=== PATIENT | male | born 1960 | race Caucasian/White ===

== ENCOUNTER 2018-02-08 06:23 | Day surgery (SDC) | payer OTHER ==
[2018-02-03 15:56] VITALS: BMI 21.7
[~2018-02-08 06:23] MED LIST: LACTATED RINGERS 1,000 ML IV SCH; LIDOCAINE 1% 20 ML VIAL (10MG/ML) FOR IV START INTRADERMA PRN
[2018-02-08 06:56] VITALS: RESP 16; TEMP 98.2
[2018-02-08 06:59] LABS: Glucose,Whole Blood 348 mg/dL (75-99)
[2018-02-08] MEDS ORDERED: PROPOFOL 10 MG/ML 20 ML VIAL IV ONE (07:52)
[2018-02-08] MEDS ORDERED: LIDOCAINE 1% INJ 10MG/ML (20 ML MDV) ONE (07:52)
--- NOTE | 2018-02-08 08:24 | P.PCN ---
Date of Procedure: 02/08/18 Procedure(s) Performed: Procedure: Colonoscopy and polypectomy. Preoperative diagnosis: Screening for neoplasia, patient has history of polyps. Postoperative diagnosis: 2 small hepatic flexure polyps snared but no large polyps or cancer. Preparation: HalfLytely prep. Sedation: Was provided by anesthesia. Brief clinical history: The patient is a 57-year-old male who is scheduled for this evaluation because of history of adenomatous polyps. He had a screening exam in December 2014 and that revealed rectal polyps that were snared, the pathology showed tubular adenoma. The preparation at that time was less than ideal especially around the flexures and on the right side. This evaluation is scheduled because of this history. The patient has no abdominal complaints, bleeding or anemia. Procedure: With the patient on his left lateral decubitus position and after informed consent and adequate sedation, the perianal area was inspected and it did not show any fissures or fistulas. There were no masses felt on digital rectal examination. The Olympus CFQ 160L video colonoscope was then inserted in the rectum in the usual fashion and advanced to the cecum. There were 2 small polyps around the hepatic flexure which were snared and retrieved by suction but there were no other polyps or tumors. The mucosa appeared healthy. No obvious diverticular disease or other pathology. I retroflexed the endoscope in the rectum before the endoscope was withdrawn. Prominent anal papillae were noted but no other pathology or bleeding. The patient tolerated the procedure well. Plan: The patient was reassured. Will await pathology results. I anticipate repeating this exam in 3-5 years. He will follow up with you as planned.
[2018-02-08 08:25] VITALS: PULSE 56
[2018-02-08 08:28] LABS: Glucose,Whole Blood 298 mg/dL (75-99)
[2018-02-08 08:46] VITALS: BP 123/63
== END 2018-02-08 09:18 | disposition home or self-care (01) ==
LOC: ORWHC2ENDO 06:23
DX: Z12.11 Encounter for screening for malignant neoplasm of colon (principal); D12.3 Benign neoplasm of transverse colon; Z86.010 Personal history of colon polyps; I10 Essential (primary) hypertension; E11.9 Type 2 diabetes mellitus without complications; Z79.4 Long term (current) use of insulin; Z96.41 Presence of insulin pump (external) (internal); Z79.82 Long term (current) use of aspirin
CPT/HCPCS: 88305; 45385; J2001; J2704

== ENCOUNTER 2019-04-04 03:17 | Emergency (ER) | payer BC ==
[2019-04-10 06:48] LABS: Glucose,Whole Blood 104 mg/dL (75-99)
[2019-04-10 06:49] LABS: Glucose,Whole Blood 104 mg/dL (75-99)
== END 2019-04-04 04:38 | disposition home or self-care (01) ==
LOC: EC 03:17
DX: E10.649 Type 1 diabetes mellitus with hypoglycemia without coma (principal); T38.3X5A Adverse effect of insulin and oral hypoglycemic [antidiabetic] drugs, initial encounter; F17.200 Nicotine dependence, unspecified, uncomplicated
CPT/HCPCS: 36415; 99285